=== PATIENT | male | born 1955 | race Caucasian/White ===

== ENCOUNTER 2020-12-02 05:40 | Outpatient (CLI) | payer BC, MEDICARE ==
[~2020-12-02] VITALS: Ht 170.2 cm; Wt 94.4 kg
== END 2020-12-02 11:14 | disposition home or self-care (01) ==
LOC: PREOP 05:40
PROVIDERS: ATTEND Otolaryngology Otolaryngology/Facial Plastic Surgery
DX: Z01.818 Encounter for other preprocedural examination (principal)

== ENCOUNTER 2020-12-06 06:21 | Day surgery (SDC) | payer BC, MEDICARE ==
[2020-12-06] VITALS (8 sets, daily range): BP systolic 145–172; BP diastolic 81–96
[~2020-12-06] VITALS: Ht 170.2 cm; Wt 94.4 kg
[2020-12-06] MEDS: LACTATED RINGERS 1,000 ML IV PRN ×2 (07:01→09:47)
--- NOTE | 2020-12-06 07:02 | Progress Note-Pre Operative ---
Pre-Operative Progress Note H&P Reviewed The H&P was reviewed, patient examined and no changes noted. Date Seen by Provider: Dec 06, 2020 Time Seen by Provider: 06:30 Date H&P Reviewed: Dec 06, 2020 Time H&P Reviewed: 06:30 Pre-Operative Diagnosis: Left Upper Lip Lesion YEFRI KING MD Dec 06, 2020 07:02
[2020-12-06] MEDS ORDERED: LIDOCAINE/EPI 1%-1:100,000 (XYLOCAINE) 20ML ONE (08:13)
[2020-12-06] MEDS ORDERED: proPOfol 200 MG/20 ML (DIPRIVAN) VIAL IV ONE (08:24)
[2020-12-06] MEDS ORDERED: ONDANSETRON 4 MG/2 ML (SDV) Z0FRAN ONE (08:24)
[2020-12-06] MEDS ORDERED: SEVOFLURANE (ULTANE) 15 ML INHAL SOLN ONE (08:24)
[2020-12-06] MEDS ORDERED: LIDOCAINE PF 2% 5 ML (XYLOCAINE) VIAL ONE (08:24)
[2020-12-06] MEDS ORDERED: fentaNYL INJ 100 MCG/2 ML AMP ONE (08:25)
[2020-12-06] MEDS ORDERED: MIDAZOLAM 2 MG/2 ML (VERSED) VIAL ONE (08:25)
[2020-12-06] MEDS ORDERED: MUPIROCIN 2% OINT 22 GM (BACTROBAN) TUBE ONE (09:32)
--- NOTE | 2020-12-06 09:40 | Progress Note-Post Operative ---
Post-Operative Progess Note Surgeon (s)/Jet Inspector (s) Surgeon YEFRI KING MD Jet Inspector n/a Pre-Operative Diagnosis Left Upper Lip Lesion Post-Operative Diagnosis same Post-Op Procedure Note Date of Procedure: Dec 06, 2020 Name of Procedure Performed: Excision of Left Upper Lip Basal Cell with INtermediate Repair Description & Findings Description and Findings: n/a Anesthesia Type get Estimated Blood Loss minimal Packing none. Specimen(s) collected/removed left upper lip lesion for frozen section YEFRI KING MD Dec 06, 2020 09:40
[2020-12-06] MEDS ORDERED: HYDROcodone/APAP 5 MG/325 MG (LORTAB) TAB PO PRN (09:45)
[2020-12-06] MEDS ORDERED: ACETAMINOPHEN 325 MG TABLET PO PRN (09:45)
[2020-12-06] MEDS ORDERED: ONDANSETRON 4 MG/2 ML (SDV) Z0FRAN IVP PRN (10:15)
[2020-12-06] MEDS ORDERED: fentaNYL INJ 100 MCG/2 ML AMP IVP ONE (10:15)
--- NOTE | 2020-12-06 11:21 | Anesthesia-General Post-Op ---
General Patient Condition Mental Status/LOC: Same as Preop Cardiovascular: Satisfactory Nausea/Vomiting: Absent Respiratory: Satisfactory Pain: Controlled Complications: Absent Post Op Complications Complications None Follow Up Care/Instructions Patient Instructions None needed. Anesthesia/Patient Condition Patient Condition Patient is doing well, no complaints, stable vital signs, no apparent adverse anesthesia problems. No complications reported per nursing. D/C home per [place] Criteria: Yes LAZARUS GOLDMAN CRNA Dec 06, 2020 11:21
[2020-12-06] MEDS ORDERED: ACHD5005 PO (11:26)
== END 2020-12-06 12:05 | disposition home or self-care (01) ==
LOC: SDC 06:21
PROVIDERS: ATTEND Otolaryngology Otolaryngology/Facial Plastic Surgery
DX: C44.01 Basal cell carcinoma of skin of lip (principal); K21.9 Gastro-esophageal reflux disease without esophagitis
CPT/HCPCS: 87081